=== PATIENT | male | born 1940 | race Caucasian/White ===

== ENCOUNTER 2023-09-30 20:25 | Emergency (ER) | payer MEDICARE, SELFPAY ==
[2023-09-30 20:29] VITALS: BP 131/77; PULSE 88; RESP 18; TEMP 36.4; O2SAT 99
--- NOTE | 2023-09-30 23:04 | ED.SKABFB ---
HPI - Skin/Abscess/Foreign Bdy General Chief complaint: Skin/Abscess/Foreign Body Stated complaint: cyst on back ruptured Time Seen by Provider: 09/30/23 22:18 Source: patient Mode of arrival: ambulatory Limitations: no limitations History of Present Illness HPI narrative: This is a 82 year old male that presents to the ER for an abscess present on his back. Reports he noted bleeding to a known cyst on his back today. Denies fevers or other drainage. Related Data Allergies Allergy/AdvReac Type Severity Reaction Status Date / Time No Known Allergies Allergy Verified 09/30/23 21:05 Review of Systems Review of Systems: CONSTITUTIONAL: Denies fever SKIN: Reports abscess All systems reviewed & are unremarkable except as noted in HPI and below PMFSH Past Medical History Medical History (Updated 09/30/23 @ 23:20 by Jenny Urrutia PA-C) History of hyperlipidemia History of hypertension Social History Social History (Updated 09/30/23 @ 23:20 by Jenny Urrutia PA-C) Substance use: never Exam Narrative: GENERAL: Well-appearing, well-nourished, and in no acute distress. HEAD: Normocephalic, atraumatic. EYES: EOMI. CHEST: Clear to auscultation. No respiratory distress. No wheezes rales or rhonchi HEART: Regular rate and rhythm. No murmur heard. Normal peripheral pulses. BACK: 4cm cyst present on the back with mild surrounding redness, active purulent drainage EXTREMITIES: Normal range of motion. No edema. SKIN: Warm, dry, no rash. NEURO: No focal deficits. Alert and oriented x3. PSYCH: Normal mood and affect Course Course Emergency Course: Patient educated on wound care. Agrees with plan of care Vital Signs Vital signs: Vital Signs Temperature 97.6 F 09/30/23 20:29 Pulse Rate 88 09/30/23 20:29 Respiratory Rate 18 09/30/23 20:29 Blood Pressure 131/77 09/30/23 20:29 Pulse Oximetry 99 09/30/23 20:29 Oxygen Delivery Room Air 09/30/23 20:29 Temperature 97.6 F 09/30/23 20:29 Pulse Rate 88 09/30/23 20:29 Respiratory Rate 18 09/30/23 20:29 Blood Pressure 131/77 09/30/23 20:29 Pulse Oximetry 99 09/30/23 20:29 Oxygen Delivery Room Air 09/30/23 20:29 Procedures Abscess I/D back: Date of Incision: 09/30/23 Time of Incision: 23:21 Local Anesthetic: lidocaine 1% and with epi Amount of anesthesia used (mL): 2 Technique: incised with #11 blade Irrigation: Yes Packing used?: iodoform I&D Results: Pus and Blood Abcess I&D Additional Comments: loculations broken up MDM - Skin/Abscess/Foreign Bdy MDM Narrative Medical decision making narrative: Patient presents to the emergency department for an abscess to his back. It appears he had a pre-existing cyst that become inflamed. He is afebrile and nontoxic appearing. Mild redness surrounding. Successful incision and drainage. This was sent for wound culture. Patient will be started on oral antibiotics. He was educated on further wound care. He does report he has follow-up with his PCP in the next 2 days. He was given warnings to return to the ER Differential Diagnosis Differential diagnosis: Likely abscess of skin or subcutaneous tissue, cellulitis and other (cyst) Critical Care Time Critical Care Time Critical Care Time: No Discharge Plan Discharge Clinical Impression: Abscess of skin or subcutaneous tissue Qualifiers: Site of cutaneous abscess: trunk Site of cutaneous abscess of trunk: back Qualified Code(s): L02.212 - Cutaneous abscess of back [any part, except buttock] Patient Disposition: Home, Self-Care Condition: Stable Instructions: Antibiotic Form, Abscess (ED) Additional Instructions: Return if symptoms worsen or concerns: any increase in redness, swelling, pain or fever over 101 Take antibiotics as directed. Clean wound with mild soapy water. Apply antibiotic ointment and clean dressing at least three times daily. Warm co
[2023-09-30 23:22] VITALS: BP 137/89; PULSE 83; RESP 20; TEMP 36.4; O2SAT 100
== END 2023-09-30 23:22 | disposition home or self-care (01) ==
PROVIDERS: Emergency Provider Physician Assistant
DX: L02.212 Cutaneous abscess of back [any part, except buttock and flank] (principal)
CPT/HCPCS: 10061; 87070; 87205; 99283